=== PATIENT | male | born 1960 | race Caucasian/White ===

== ENCOUNTER 2016-05-10 08:02 | Day surgery (SDC) | payer OTHER ==
[2016-05-03 15:08] LABS: HEMATOCRIT 27.5 % (40.0-51.0); HEMOGLOBIN 9.1 g/dL (13.6-17.8)
[2016-05-03 15:14] LABS: CALCIUM, SERUM 8.6 MG/DL (8.5-10.4); CHLORIDE, SERUM 104 MMOL/L (96-112); GFR AFRICAN AMERICAN 60 ML/MIN (>=60); GFR NON AFRICAN AMERICAN 52 ML/MIN (>=60); GLUCOSE, SERUM 90 MG/DL (60-99); POTASSIUM, SERUM 4.6 MMOL/L (3.5-5.3); SODIUM, SERUM 141 MMOL/L (135-148)
[2016-05-03 15:15] LABS: BUN (BLOOD UREA NITROGEN) 35 MG/DL (6-23); CO2 (CARBON DIOXIDE) 21 MMOL/L (24-34); CREATININE 1.48 MG/DL (0.70-1.30)
--- NOTE | ~2016-05-10 | OP ---
Record Of Operation [facility] [address] [place]. [address] NAME: MARLNY LOCKE : 58 STATUS : [facility]#: [id number] AGE: 55 ADM/REG DATE : 05/10/16 MR#: [id number] REPORT SERV DATE: 05/13/16 DICTATED BY: WANG JOYA DATE: 05/13/16 REPORT STATUS : Draft TRANSCRIBED BY: MODL DATE: 05/13/16 DATE OF PROCEDURE: 05/10/2016 PREOPERATIVE DIAGNOSIS: Right inguinal/scrotal hernia. POSTOPERATIVE DIAGNOSIS: Right inguinal/scrotal hernia. PROCEDURE: Reduction and mesh patch repair of right inguinal/scrotal hernia. SURGEON: Wang Joya M.D. DESCRIPTION OF OPERATIVE PROCEDURE: The patient was brought to operating suite, placed in supine position, underwent satisfactory general endotracheal anesthesia without incident. Following this, the skin of the lower abdomen was scrubbed, prepped, and draped in usual sterile fashion. 0.5% Marcaine with epinephrine was utilized as supplemental local anesthesia. Utilizing a groin crease incision dissecting through the skin, subcutaneous tissue, and Chichi's fascia to the external oblique aponeurosis retractors placed. The patient had a longstanding right inguinal scrotal hernia with massive amount of omentum and small bowel in the right hemiscrotum. After divided the external oblique aponeurosis using traction and counter traction, as well as supplemented with blunt insert and electrocautery, the large thick-walled hernia sac was dissected free from the spermatic cord and the scrotal contents up to the level of the internal ring. The thick hernia sac was opened, it contain some omentum and a few loops of small bowel, which were reduced through the internal ring back into the peritoneal cavity. The sac was excised through the level of the internal ring and underwent suture ligation with 3-0 Vicryl and was allowed to retract. The cord structures were dissected free from the inguinal canal floor. Using a piece of precoat polypropylene mesh, the hernia was repaired by the mesh, suturing the mesh directly into the inguinal canal starting medially at the pubic tubercle and continued inferolaterally along the shelving portion of the ilioinguinal ligament and superior laterally along the aponeurosis transverse abdominis muscle. At the level of the internal ring, the two tails of the mesh were sutured circumferential lateral and then to each other lateral to the internal ring. The sutures were cut and the mesh was trimmed. 0.5% Marcaine was instilled into the inguinal canal. External oblique aponeurosis was closed over the cord structures and the mesh using running locking 3-0 Vicryl. Further Marcaine with epinephrine instilled into the inguinal canal and Chichi's fascia and subcutaneous tissue closed with running 3-0 Vicryl, running subcuticular stitch 4-0 Vicryl for the skin. Dermabond skin adhesive. The patient tolerated the procedure well and was returned to PACU in stable condition. At termination of procedure, sponge, needle, lap, and instrument counts were correct x3. ESTIMATED BLOOD LOSS: 15 mL. Record Of Operation [address] [place]. [address] NAME: MARLYN LOCKE : 58 STATUS : [facility]#: [id number] AGE: 55 ADM/REG DATE : 05/10/16 MR#: [id number] REPORT SERV DATE: 05/13/16 DICTATED BY: WANG JOYA DATE: 05/13/16 REPORT STATUS : Draft TRANSCRIBED BY: BLUL DATE: 05/13/16 BÁRBARA/BULL Wang Joya M.D. / [id number] CC: Wang Joya M.D.
[~2016-05-10 08:02] MED LIST: ASA5GR PO; COREG25 PO; CRESTOR40 MG PO; FISH OIL1200 MG PO; FOLIC PO; KDUR20 PO; L20 PO; MAGOX4 PO; PLAVIX PO; PRIN20 PO; ZETIA PO
== END 2016-05-10 16:58 | disposition home or self-care (01) ==
LOC: SDC 08:02
PROVIDERS: Specialist
PROC: 0YU50JZ Supplement Right Inguinal Region with Synthetic Substitute, Open Approach (ICD-10-PCS; principal; 2016-05-10 09:00)
DX: K40.90 Unilateral inguinal hernia, without obstruction or gangrene, not specified as recurrent (principal); I10 Essential (primary) hypertension; E78.00 Pure hypercholesterolemia, unspecified; I25.10 Atherosclerotic heart disease of native coronary artery without angina pectoris; Z95.1 Presence of aortocoronary bypass graft; Z79.82 Long term (current) use of aspirin; Z79.02 Long term (current) use of antithrombotics/antiplatelets; Z79.899 Other long term (current) drug therapy
CPT/HCPCS: 80048; 85014; 85018; 88302; 93005; A9270-GY; C1781; J0690; J2250; J2270; J2405; J2710; J3010